=== PATIENT | male | born 1940 | race Hispanic/Latino ===

== ENCOUNTER 2017-07-15 07:09 | Day surgery (SDC) | payer MEDICARE ==
[2017-07-13 10:06] VITALS: BP 133/71
[2017-07-13 10:37] LABS: BASOPHILS % (AUTO) 0.4 % (0.0-5.0); EOSINOPHILS % (AUTO) 3.5 % (0.0-8.0); HEMATOCRIT 33.3 % (42-54); MEAN CORPUSCULAR HEMOGLOBIN 33.5 pg (27.0-33.0); MEAN CORPUSCULAR HGB CONC 34.3 g/dL (32.0-36.0); MEAN CORPUSCULAR VOLUME 97.7 fL (79-99); MONOCYTES % (AUTO) 10.4 % (3.0-13.0); NEUTROPHILS % (AUTO) 60.7 % (40.0-77.0); PLATELET COUNT (AUTO) 138 K/uL (130-400); RED BLOOD CELL COUNT(AUTO) 3.41 MIL/uL (4.50-6.20); RED CELL DISTRIBUTION WIDTH 12.8 % (11.0-15.5); WHITE BLOOD COUNT (AUTO) 5.9 K/uL (4.8-10.8)
[2017-07-13 11:01] LABS: CREATININE 1.6 mg/dL (0.5-1.5); POTASSIUM 3.4 mmol/L (3.5-5.1)
[2017-07-13 11:10] LABS: INR 1.26 (0.85-1.15); PARTIAL THROMBOPLASTIN TIME 70.4 SEC (26.3-35.5); PROTHROMBIN TIME 13.2 SEC (9.6-11.6)
[~2017-07-15] VITALS: Ht 165.1 cm; Wt 66.8 kg
[2017-07-15] VITALS (11 sets, daily range): BP systolic 128–157; BP diastolic 73–108
[~2017-07-15 07:09] MED LIST: CLON0.5T4 PO; CLOP75TA32 PO; DIVA500T52 PO; ESOM40CA PO; FLUO-126 PO; FOLIC ACID PO; GABA-318 PO; INSU100I3 SQ; INSU3INS3 SQ; IRON PO; LEVE10006 PO; LOVA20TA3 PO; MEMA21CA PO; METO25TA6 PO; PANT40TA25 PO; VIT1TABL75 PO; VITAMIN B12 PO
[2017-07-15] MEDS ORDERED: LIDOCAINE HCL 1% MDV 50ML VIAL ONE (08:34)
[2017-07-15] MEDS ORDERED: CEFAZOLIN 1GM / D5W 50ML 150 ML ONE (08:34)
[2017-07-15] MEDS ORDERED: BUPIVACAINE/PF 0.25% 30ML VIAL IJ ONE (08:34)
[2017-07-15] MEDS ORDERED: MIDAZOLAM HCL 1 MG/ML 2ML VIAL ONE (09:05)
[2017-07-15] MEDS ORDERED: MEPERIDINE-PF 25 MG/ML SYG ONE (09:05)
[2017-07-15] MEDS ORDERED: ACETAMINOPHEN 325 MG TAB PO PRN (10:30)
[2017-07-15] MEDS ORDERED: ACETAMINOPHEN-CODEINE 300/30MG TAB PO PRN ×2 (10:30)
== END 2017-07-15 13:58 | disposition home or self-care (01) ==
LOC: DAH 07:09
PROVIDERS: ATTEND Internal Medicine Cardiovascular Disease
DX: I49.5 Sick sinus syndrome (principal); I34.0 Nonrheumatic mitral (valve) insufficiency; I45.89 Other specified conduction disorders; Z79.899 Other long term (current) drug therapy; Z79.01 Long term (current) use of anticoagulants; Z95.820 Peripheral vascular angioplasty status with implants and grafts
CPT/HCPCS: 33228; 36415; 80048; 82948 ×2; 85025; 85610; 85730; 93005; C1785; J0690; J2175; J2250; J3490 ×2; 99152; 99153

== ENCOUNTER 2018-03-28 16:49 | Emergency (ER) | payer MEDICARE ==
[~2018-03-28 16:49] MED LIST changes: +CLON0.5T12 PO; -CLON0.5T4 PO
[2018-03-28] MEDS ORDERED: ONDANSETRON HCL 4 MG/2 ML VIAL ONE ×2 (16:52→17:31)
[2018-03-28] MEDS ORDERED: DiphenhydrAMINE HCL 50 MG/ML VIAL ONE (17:11)
[2018-03-28] MEDS ORDERED: SODIUM CHLORIDE 0.9% 1000ML 1,000 ML IV ONE (17:11)
[2018-03-28 17:15] LABS: BASOPHILS % (AUTO) 0.2 % (0.0-5.0); EOSINOPHILS % (AUTO) 1.8 % (0.0-8.0); HEMATOCRIT 32.8 % (42-54); LYMPHOCYTES % (AUTO) 23.2 % (21.0-51.0); MEAN CORPUSCULAR HEMOGLOBIN 34.9 pg (27.0-33.0); MEAN CORPUSCULAR HGB CONC 35.4 g/dL (32.0-36.0); MEAN CORPUSCULAR VOLUME 98.8 fL (79-99); MONOCYTES % (AUTO) 3.2 % (3.0-13.0); NEUTROPHILS % (AUTO) 71.6 % (40.0-77.0); PLATELET COUNT (AUTO) 149 K/uL (130-400); RED BLOOD CELL COUNT(AUTO) 3.32 MIL/uL (4.50-6.20); RED CELL DISTRIBUTION WIDTH 12.7 % (11.0-15.5); WHITE BLOOD COUNT (AUTO) 5.8 K/uL (4.8-10.8)
[2018-03-28 17:23] LABS: CREATININE 1.8 mg/dL (0.5-1.5); POTASSIUM 4.1 mmol/L (3.5-5.1)
[2018-03-28 17:27] LABS: INR 1.23 (0.85-1.15); PROTHROMBIN TIME 12.9 SEC (9.6-11.6)
[2018-03-28 17:28] LABS: BILIRUBIN,TOTAL 0.7 mg/dL (0.2-1.0); TOTAL PROTEIN, SERUM 7.4 g/dL (6.0-8.3)
[2018-03-28 17:35] LABS: PARTIAL THROMBOPLASTIN TIME 95.2 SEC (26.3-35.5)
[2018-03-28] MEDS ORDERED: PROMETHAZINE HCL 25 MG/ML 1ML AMPULE IM ONE (19:22)
== END 2018-03-28 21:38 | disposition home or self-care (01) ==
LOC: EDH 16:49
DX: T63.441A Toxic effect of venom of bees, accidental (unintentional), initial encounter (principal); R11.2 Nausea with vomiting, unspecified; E11.9 Type 2 diabetes mellitus without complications; E78.5 Hyperlipidemia, unspecified; I10 Essential (primary) hypertension; Z79.4 Long term (current) use of insulin; Z87.891 Personal history of nicotine dependence; Y92.89 Other specified places as the place of occurrence of the external cause
CPT/HCPCS: 36415; 70450; 80053; 82550; 82948 ×2; 84484; 85025; 85610; 85730; 96361; 96372; 96374; 96375; 96376; 99285; J1200; J2405 ×2; J2550; J7030

== ENCOUNTER → 2018-07-19 | Outpatient (CLI) | payer MEDICARE ==
[~2018-07-19] MED LIST changes: -GABA-318 PO; +GABA600T10 PO
== END | disposition home or self-care (01) ==
LOC: RAH 09:06
PROVIDERS: ATTEND Internal Medicine
DX: R13.10 Dysphagia, unspecified (principal); K22.8 Other specified diseases of esophagus; R14.0 Abdominal distension (gaseous)
CPT/HCPCS: 74240

== ENCOUNTER → 2018-08-04 | Outpatient (CLI) | payer MEDICARE ==
--- NOTE | 2018-08-04 10:30 | NUR ---
MBSS COMPLETED. -S/S OF ASPIRATION. RECOMMEND REGULAR TEXTURE, THIN LIQUIDS; PILLS WHOLE WITH LIQUIDS. PATIENT INFORMATION: Pt IS A 77 YEAR OLD MALE REFERRED FOR AN MBSS SECONDARY TO COMPLAINS OF FOOD GETTING STUCK IN THE BACK OF HIS THROAT. Pt HAS SINCE DECREASED ORAL INTAKE SIGNIFICANTLY. Pt WAS ACCOMPANIED BY DURING MBSS. Pt IS VERY HARD OF HEARING. Pt HAS A PAST MEDICAL HISTORY SIGNIFICANT FOR DM, RENAL DISEASE, CAD WITH PACEMAKER, DEPRESSION, ALZHEIMER'S DISEASE. MBSS INTERPRETATION: SWALLOW FUNCTION AND EFFICIENCY WITHIN FUNCTIONAL LIMITS. ORAL MOTOR STRENGTH, COORDINATION, AND ROM WITHIN FUNCTIONAL LIMITS. LARYNGEAL ELEVATION/EXCURSION STRONG WITH TIMELY PHARYNGEAL RESPONSE. NO OVERT SIGNS OR SYMPTOMS OF ASPIRATION PRESENT. RECOMMENDATIONS: 1. REGULAR TEXTURE, THIN LIQUID DIET; PILLS WHOLE WITH LIQUIDS. 2. COMPENSATORY STRATEGIES (PROPHYLAXIS): *SEATED AT 90 DEGREE ANGLE *ALTERNATE BITES AND SIPS *SLOW RATE *REMAIN UPRIGHT 30 MINUTES AFTER MEAL TIMES G-CODES SWALLOWING: [id number] Addendum: 08/05/18 at [address] Amended: Links added.
== END | disposition home or self-care (01) ==
LOC: RAH 10:07
PROVIDERS: ATTEND Internal Medicine Gastroenterology
DX: R63.3 Feeding difficulties (principal); R13.12 Dysphagia, oropharyngeal phase; R10.13 Epigastric pain; R13.10 Dysphagia, unspecified
CPT/HCPCS: G8996; G8997; G8998; 74230; 92611

== ENCOUNTER 2019-04-20 17:06 | Inpatient (IN) | payer MEDICARE ==
[~2019-04-20] VITALS: Ht 175.3 cm; Wt 57.8 kg
[~2019-04-20 17:06] MED LIST changes: -CLON0.5T12 PO; +CLON0.5T4 PO
[2019-04-20 17:41] LABS: BASOPHILS % (AUTO) 0.3 % (0.0-5.0); EOSINOPHILS % (AUTO) 1.9 % (0.0-8.0); HEMATOCRIT 28.7 % (42-54); MEAN CORPUSCULAR HEMOGLOBIN 33.5 pg (27.0-33.0); MEAN CORPUSCULAR HGB CONC 34.6 g/dL (32.0-36.0); MEAN CORPUSCULAR VOLUME 96.9 fL (79-99); NEUTROPHILS % (AUTO) 73.8 % (40.0-77.0); PLATELET COUNT (AUTO) 71 K/uL (130-400); RED BLOOD CELL COUNT(AUTO) 2.96 MIL/uL (4.50-6.20); RED CELL DISTRIBUTION WIDTH 12.7 % (11.0-15.5); WHITE BLOOD COUNT (AUTO) 5.3 K/uL (4.8-10.8)
[2019-04-20 17:48] LABS: CREATININE 1.3 mg/dL (0.5-1.5); POTASSIUM 3.9 mmol/L (3.5-5.1)
[2019-04-20 17:52] LABS: ALBUMIN 2.3 g/dL (3.5-5.0); BILIRUBIN,TOTAL 0.6 mg/dL (0.2-1.0); INR 1.34 (0.85-1.15); PROTHROMBIN TIME 13.9 SEC (9.6-11.6); TOTAL PROTEIN, SERUM 6.4 g/dL (6.0-8.3)
[2019-04-20 18:06] LABS: B-TYPE NATRIURETIC PEPTIDE 2070 pg/mL (0-100)
[2019-04-20 18:19] LABS: PARTIAL THROMBOPLASTIN TIME 91.7 SEC (26.3-35.5)
[2019-04-20] MEDS ORDERED: FUROSEMIDE 10 MG/ML 4ML VIAL ONE (18:46)
[2019-04-20 19:10] LABS: APPEARANCE,URINE Clear (CLEAR); BILIRUBIN,URINE Negative (NEGATIVE); COLOR,URINE Yellow (YELLOW); GLUCOSE, URINE (UA) 250 mg/dL (NEGATIVE); KETONES,URINE Trace mg/dL (NEGATIVE); LEUKOCYTE ESTERASE ,URINE Negative (NEGATIVE); NITRATE,URINE Negative (NEGATIVE); OCCULT BLOOD,URINE Negative (NEGATIVE); PH,URINE 5.5 (5.0-8.0); PROTEIN,URINE Negative (NEGATIVE)
[2019-04-20] MEDS ORDERED: KETOROLAC TROMETHAMINE 15MG/ML IV PRN (19:30)
[2019-04-20] MEDS: FUROSEMIDE 10 MG/ML 2ML VIAL IV SCH (19:30)
[2019-04-20] MEDS ORDERED: MAGNESIUM 2GM PREMIX 50ML 50 ML IV PRN (19:45)
[2019-04-20] MEDS ORDERED: LIDOCAINE HCL-MPF 1% 2ML VIAL IV PRN (19:45)
[2019-04-20] MEDS ORDERED: POTASSIUM CHLORIDE 20MEQ/100ML 100 ML IV PRN (19:45)
[2019-04-20] MEDS ORDERED: GLUCAGON 1MG KIT 1 MG ML IM PRN (19:45)
[2019-04-20] MEDS ORDERED: ONDANSETRON HCL 4 MG/2 ML VIAL IVP PRN (19:45)
[2019-04-20] MEDS ORDERED: DEXTROSE 50%-WATER 50 ML DISP.SYRIN IV PRN (19:45)
[2019-04-20] MEDS ORDERED: POTASSIUM CHLORIDE 10% ELIXIR 20 MEQ/15 ML UDCUP PO PRN (19:45)
[2019-04-20] MEDS: FAMOTIDINE 20MG TAB 20 MG TAB PO SCH (21:00)
[2019-04-20] MEDS: INSULIN HUMULIN R 100 UNIT/ML 3ML SQ SCH (21:00)
[2019-04-20] MEDS ORDERED: INSULIN HUMULIN R 100 UNIT/ML 3ML ONE (21:55)
[2019-04-20] MEDS ORDERED: MORPHINE SULFATE 4 MG/1ML SYG ONE (22:05)
[2019-04-20 23:00] VITALS: BP 152/91
--- NOTE | 2019-04-20 23:00 | NUR ---
ADMIT NOTE ADMIT TO ROOM 431 VIA STRETCHER FROM ER. PATIENT AWAKE, ALERT,OX3, NO SOB, SOB, ON EXERTION PER FAMILY , TEACH PATIENT AND FAMILY PLAN OF CARE AND EXPECTED OUTCOME, PATIENT VERBALIZES UNDERSTANDING VIA TEACH BACK
[2019-04-20] MEDS ORDERED: MEMA14CA PO (23:12)
[2019-04-20] MEDS ORDERED: FOLI1TAB85 PO (23:12)
[2019-04-20] MEDS ORDERED: SUCR1TAB2 PO (23:12)
[2019-04-20] MEDS ORDERED: LEVE10006 PO (23:12)
[2019-04-20] MEDS ORDERED: DICY10CA13 PO (23:12)
[2019-04-20] MEDS ORDERED: INSU100V12 SQ (23:12)
[2019-04-20] MEDS ORDERED: DONE5TAB33 PO (23:13)
[2019-04-20] MEDS ORDERED: CHOL100044 PO (23:13)
[2019-04-20] MEDS ORDERED: CARB1TAB41 PO (23:13)
[2019-04-21] MEDS: FUROSEMIDE 10 MG/ML 2ML VIAL IV SCH ×3 (03:39→22:49)
[2019-04-21 04:00] VITALS: BP 132/74
[2019-04-21 05:11] LABS: BASOPHILS % (AUTO) 0.5 % (0.0-5.0); EOSINOPHILS % (AUTO) 1.6 % (0.0-8.0); HEMATOCRIT 30.3 % (42-54); LYMPHOCYTES % (AUTO) 12.4 % (21.0-51.0); MEAN CORPUSCULAR HEMOGLOBIN 33.5 pg (27.0-33.0); MEAN CORPUSCULAR HGB CONC 35.2 g/dL (32.0-36.0); MEAN CORPUSCULAR VOLUME 95.3 fL (79-99); MONOCYTES % (AUTO) 11.4 % (3.0-13.0); NEUTROPHILS % (AUTO) 74.1 % (40.0-77.0); PLATELET COUNT (AUTO) 82 K/uL (130-400); RED BLOOD CELL COUNT(AUTO) 3.18 MIL/uL (4.50-6.20); RED CELL DISTRIBUTION WIDTH 12.7 % (11.0-15.5); WHITE BLOOD COUNT (AUTO) 5.8 K/uL (4.8-10.8)
[2019-04-21 05:20] LABS: ALBUMIN 2.5 g/dL (3.5-5.0); BILIRUBIN,TOTAL 0.8 mg/dL (0.2-1.0); CREATININE 1.3 mg/dL (0.5-1.5); MAGNESIUM 2.5 mg/dL (1.80-2.40); POTASSIUM 3.3 mmol/L (3.5-5.1); TOTAL PROTEIN, SERUM 6.8 g/dL (6.0-8.3)
[2019-04-21 05:23] LABS: HEMOGLOBIN A1C 8.1 % (4.0-6.0)
[2019-04-21 05:30] LABS: B-TYPE NATRIURETIC PEPTIDE 2300 pg/mL (0-100)
[2019-04-21] MEDS: INSULIN HUMULIN R 100 UNIT/ML 3ML SQ SCH ×5 (06:00→22:47)
[2019-04-21 08:00] VITALS: BP 120/69
[2019-04-21] MEDS ORDERED: HYDRALAZINE HCL 20 MG/ML VIAL IV PRN (09:00)
[2019-04-21] MEDS: POTASSIUM CHLORIDE 20 MEQ ERTAB PO PRN ×2 (09:53→12:37)
[2019-04-21] MEDS: SPIRONOLACTONE 25 MG TAB PO SCH (09:53)
[2019-04-21] MEDS: FAMOTIDINE 20MG TAB 20 MG TAB PO SCH ×2 (09:54→22:47)
[2019-04-21 12:00] VITALS: BP 111/74
[2019-04-21] MEDS: ASPIRIN 81MG TAB.CHEW PO SCH (12:37)
[2019-04-21] MEDS: ENOXAPARIN SODIUM 30 MG/0.3 ML SQ SCH (12:38)
--- NOTE | 2019-04-21 14:14 | NUR ---
DCP CM met with pt discussed dc plans. Pt is semi-independent prior to admission, lives at home w/spouse and daughter. Pt has a walker, provider 4hrs/day. Denies any other equipments/services. Feels safe to go back home, spouse and daughter able to assist with transportation and needs as necessary. DC plan to home once stable. CM to cont to follow up. Addendum: 04/21/19 at 1415 by ONOFRE VENTURA LVN CM Amended: Links added.
--- NOTE | 2019-04-21 14:45 | NUR ---
RD NOTIFICATION DX: BILATERAL PLEURAL EFFUSION. HX: DM, HYPERLIPIDEMIA, HTN. DIET: HEART HEALTHY. LBM: 04/21. PO INTAKE <25% DUE TO DIFFICULTY BREATHING. PT CLAIMS TO POOR APPETITE PER FAMILY. RD CONSULT DUE TO POOR APPETITE. RD RECOMMENDS CONTINUE CURRENT DIET, ADD 1200MLS/D FLUID RESTRICTION TO DIET ORDER. OFFER ENSURE WITH MEALS. RD WILL MONITOR AND FOLLOW UP NEEDED. CHATA JOHNSON MS, RDN Addendum: 04/21/19 at [address] Amended: Links added.
[2019-04-21 16:00] VITALS: BP 113/74
--- NOTE | 2019-04-21 16:43 | NUR ---
RECEIVED CALL FROM CAMPBELL BUCKLEY FROM [facility] STATING 2 DECHO CANCELLED, PATIENT WITH ADVANCED AORTIC STENOSIS AND PATIENT HAD NOT BEEN WANTING SURGERY INTERVENTION THEREFORE RECOMMENDS HOSPICE AT THIS POINT . INFORMED PRIMARY DR CABRERA .
[2019-04-21 20:00] VITALS: BP 106/60
[2019-04-22] VITALS (7 sets, daily range): BP systolic 97–109; BP diastolic 62–72
--- NOTE | 2019-04-22 00:25 | NUR ---
PAIN PT C/O HEADACHE PAIN. NO PAIN MED AVAILABLE ON AUG. PAGED HOSPITALIST FOR A MEDICATION ORDER. WAITING FOR CALL BACK.
[2019-04-22] MEDS ORDERED: ACETAMINOPHEN 325 MG TAB PO PRN (00:45)
[2019-04-22] MEDS: ACETAMINOPHEN 325 MG TAB PO PRN ×2 (01:31→15:17)
[2019-04-22 06:26] LABS: CREATININE 1.8 mg/dL (0.5-1.5); MAGNESIUM 1.6 mg/dL (1.80-2.40); POTASSIUM 3.8 mmol/L (3.5-5.1)
[2019-04-22] MEDS: INSULIN HUMULIN R 100 UNIT/ML 3ML SQ SCH ×4 (06:36→20:53)
[2019-04-22] MEDS: SPIRONOLACTONE 25 MG TAB PO SCH (09:03)
[2019-04-22] MEDS: ASPIRIN 81MG TAB.CHEW PO SCH (09:04)
[2019-04-22] MEDS: FUROSEMIDE 10 MG/ML 2ML VIAL IV SCH (09:04)
[2019-04-22] MEDS: ENOXAPARIN SODIUM 30 MG/0.3 ML SQ SCH (09:05)
[2019-04-22] MEDS: POTASSIUM CHLORIDE 20 MEQ ERTAB PO PRN ×2 (09:23→15:18)
[2019-04-22] MEDS: FAMOTIDINE 20MG TAB 20 MG TAB PO SCH (20:54)
[2019-04-22] MEDS: FUROSEMIDE 20 MG TABLET PO SCH (20:58)
[2019-04-23 03:00] VITALS: BP 121/67
[2019-04-23 05:35] LABS: BASOPHILS % (AUTO) 0.3 % (0.0-5.0); EOSINOPHILS % (AUTO) 1.5 % (0.0-8.0); HEMATOCRIT 30.9 % (42-54); LYMPHOCYTES % (AUTO) 11.4 % (21.0-51.0); MEAN CORPUSCULAR HEMOGLOBIN 33.1 pg (27.0-33.0); MEAN CORPUSCULAR HGB CONC 34.7 g/dL (32.0-36.0); MEAN CORPUSCULAR VOLUME 95.5 fL (79-99); MONOCYTES % (AUTO) 8.5 % (3.0-13.0); NEUTROPHILS % (AUTO) 78.3 % (40.0-77.0); PLATELET COUNT (AUTO) 100 K/uL (130-400); RED BLOOD CELL COUNT(AUTO) 3.23 MIL/uL (4.50-6.20); RED CELL DISTRIBUTION WIDTH 13.2 % (11.0-15.5); WHITE BLOOD COUNT (AUTO) 6.2 K/uL (4.8-10.8)
[2019-04-23 05:41] LABS: POTASSIUM 4.6 mmol/L (3.5-5.1)
[2019-04-23] MEDS: INSULIN HUMULIN R 100 UNIT/ML 3ML SQ SCH ×2 (05:50→17:20)
[2019-04-23 08:00] VITALS: BP 118/70
[2019-04-23] MEDS: SPIRONOLACTONE 25 MG TAB PO SCH (10:46)
[2019-04-23] MEDS: ASPIRIN 81MG TAB.CHEW PO SCH (10:46)
[2019-04-23] MEDS: FUROSEMIDE 20 MG TABLET PO SCH (10:47)
[2019-04-23] MEDS: ENOXAPARIN SODIUM 30 MG/0.3 ML SQ SCH (10:47)
[2019-04-23 12:00] VITALS: BP 97/60
[2019-04-23] MEDS: ACETAMINOPHEN 325 MG TAB PO PRN (15:02)
[2019-04-23 16:00] VITALS: BP 116/59
--- NOTE | 2019-04-23 16:23 | NUR ---
HOSPICE: Spoke w Carrie Melendez NP this afternoon regarding Hospice order. She mentions to hold off on speaking w pt/family. She mentions she is waiting for Dr. Mcghee to make final determination on Hospice.
--- NOTE | 2019-04-23 19:41 | NUR ---
CALLED TO MARINA VASQUEZ TO CLARIFY IF PATIENT WILL CONTINUE WITH LASIX OUPT AND CURRENTLY WAS ON SPIRLACOLONE AND LASIX HERE. PER MARINA VASQUEZ SPOKE WITH DR Soliman AND STATING PATIENT WILL NOT CONT WITH THESE MEDS DUE TO NEEDED OF CLOSE MONITORING AND DUE TO CREATINE BEING ELEVATED ,TO TEACH ON DIET AND TO FOLLOW UP WITH CARDIOLOGY. EXPLAINED TO FAMILY ON UPDATE ON REASON FOR NOT CONT LASIX AND TO CONT WITH ALL OTHER OF HIS HOME MEDS ,FOLLOW A HEART HEALTHY DIET AND TO MAKE SURE TO FOLLOW UP WIHT CARDIOLOGY . AND DAUGHTER VERBILIZED UNDERSTANDING .
[2019-04-23 19:50] VITALS: BP 104/64
== END 2019-04-23 20:02 | disposition home or self-care (01) | DRG 291 ==
LOC: EDH 17:06 → EDHIP 19:18 → OBSVTOIN 19:18 → 3AH 22:44
PROVIDERS: ADMIT Internal Medicine; ATTEND Internal Medicine
DX: I11.0 Hypertensive heart disease with heart failure (principal); E43 Unspecified severe protein-calorie malnutrition; J98.11 Atelectasis; Z68.1 Body mass index [BMI] 19.9 or less, adult; I50.9 Heart failure, unspecified; I35.0 Nonrheumatic aortic (valve) stenosis; E78.5 Hyperlipidemia, unspecified; G40.909 Epilepsy, unspecified, not intractable, without status epilepticus; M43.8X6 Other specified deforming dorsopathies, lumbar region; I49.1 Atrial premature depolarization; R07.0 Pain in throat; H91.90 Unspecified hearing loss, unspecified ear; D69.6 Thrombocytopenia, unspecified; D64.9 Anemia, unspecified; E87.70 Fluid overload, unspecified; E11.65 Type 2 diabetes mellitus with hyperglycemia; Z95.0 Presence of cardiac pacemaker; Z82.49 Family history of ischemic heart disease and other diseases of the circulatory system; Z79.899 Other long term (current) drug therapy
CPT/HCPCS: 36415; 71045; 74176; 80048; 80053; 81003; 82550; 82948; 83036; 83690; 83735; 83880; 84484; 85025; 85610; 85730; 87880; 93005; 97039; G0378; J1650; J1815; J1940; J2270; J3475

== ENCOUNTER → 2019-05-12 | Outpatient (CLI) | payer MEDICARE ==
[~2019-05-12] MED LIST changes: +CARB1TAB41 PO; +CHOL100044 PO; +DICY10CA13 PO; +DONE5TAB33 PO; -FLUO-126 PO; +FOLI1TAB85 PO; -FOLIC ACID PO; -GABA600T10 PO; -INSU100I3 SQ; +INSU100V12 SQ; -INSU3INS3 SQ; -IRON PO; -LOVA20TA3 PO; +MEMA14CA PO; -MEMA21CA PO; -PANT40TA25 PO; +SUCR1TAB2 PO; -VIT1TABL75 PO; -VITAMIN B12 PO
== END | disposition home or self-care (01) ==
LOC: RAH 08:50
PROVIDERS: ATTEND Family Medicine
DX: I08.3 Combined rheumatic disorders of mitral, aortic and tricuspid valves (principal); I73.9 Peripheral vascular disease, unspecified; Z95.0 Presence of cardiac pacemaker; I65.23 Occlusion and stenosis of bilateral carotid arteries
CPT/HCPCS: 93306